=== PATIENT | female | born 1945 | race Caucasian/White ===

== ENCOUNTER 2018-04-10 10:14 | Emergency (ER) | payer MEDICARE, OTHER ==
[~2018-04-10] VITALS: Ht 165.1 cm; Wt 69.0 kg
--- NOTE | 2018-04-10 10:41 | NUR ---
PT STATES SLIPPED WHEN SHOVELING SNOW. PT PUT RIGHT ARM TO STOP FALL. WRIST/DISTAL FOREARM SWELLING NOTED. PROVIDED ICE PACK. PROVIDER AT BEDSIDE
--- NOTE | 2018-04-10 12:10 | NUR ---
dr wayne spoke with dr cash ortho
--- NOTE | 2018-04-10 12:21 | NUR ---
BREAK RN NOTE: pt a&o, rsps even and unlabored. pt updated with results and POC by PATRICE Crow. pt to be splinted and dc'd. bp and spo2 monitors in place. call light in reach. pt has no complaint at this time.
--- NOTE | 2018-04-10 12:46 | NUR ---
TECH AT BEDSIDE APPLYING SPLINT
[2018-04-10 13:06] VITALS: BP 128/69
== END 2018-04-10 13:08 | disposition home or self-care (01) ==
LOC: ED 11:03
DX: S52.501A Unspecified fracture of the lower end of right radius, initial encounter for closed fracture (principal); Z88.0 Allergy status to penicillin; Z88.2 Allergy status to sulfonamides; W00.0XXA Fall on same level due to ice and snow, initial encounter; Y93.89 Activity, other specified; Y92.009 Unspecified place in unspecified non-institutional (private) residence as the place of occurrence of the external cause; Y99.8 Other external cause status
CPT/HCPCS: 29125; 99283